=== PATIENT | female | born 1945 ===

== ENCOUNTER 2023-03-02 15:03 | Outpatient (CLI) | payer OTHER, SELFPAY ==
--- NOTE | 2023-03-02 11:26 | DI.RAD_ITS ---
Exam(s) XR ANKLE RT COMPLETE EXAM: XR ANKLE RT COMPLETE CLINICAL HISTORY: ankle pain, rolled right ankle, M25.571. TECHNIQUE: 2D digital imaging was performed of the right ankle. Three images were obtained. AP, la teral and oblique views were obtained. COMPARISON: No exams were available for comparison FINDINGS: BONES: No acute fracture is present. No bony destructive lesion is seen. There is a small plantar ca lcaneal spur. JOINTS: There is marked narrowing between the medial malleolus and the talus with subchondral scleros is. SOFT TISSUE: Dystrophic calcifications are seen in the soft tissues. There is soft tissue swelling a bout the ankle particularly medially. IMPRESSION: No acute fracture or dislocation. DATA REPOSITORY: RADIATION DOSE DELIVERED:
== END 2023-03-02 15:23 ==
PROVIDERS: Visit Provider Physician Assistant
DX: M25.571 Pain in right ankle and joints of right foot (principal)
CPT/HCPCS: 73610